=== PATIENT | male | born 1995 | race Caucasian/White ===

== ENCOUNTER 2017-01-14 11:29 | Emergency (ER) | payer OTHER ==
--- NOTE | 2017-01-14 12:05 | ED Physician Documentation ---
PD HPI ABD PAIN - Stated complaint Stated Complaint: ABD PX - Chief complaint Chief Complaint: Abd Pain - History obtained from History obtained from: Patient - History of Present Illness Timing - onset: How many weeks ago (1) Timing - duration: Weeks (1) Timing - details: Gradual onset Pain level max: 9 Pain level now: 6 Quality: Aching, Dull Location: Epigastric Radiation: Other (mid back) Improved by: Vomiting Worsened by: Eating Associated symptoms: Nausea, Vomiting (several times). No: Fever, Hematemesis, Diarrhea, Constipation, Melena, Hematochezia Similar symptoms before: Diagnosis ("ulcers") Recently seen: Not recently seen Review of Systems Ten Systems: 10 systems reviewed and negative Constitutional: denies: Fever, Chills Ears: denies: Ear pain Nose: denies: Rhinorrhea / runny nose, Congestion Throat: denies: Sore throat Cardiac: denies: Chest pain / pressure Respiratory: denies: Cough GI: denies: Abdominal Swelling, Hematemesis, Bloody / black stool Skin: denies: Rash Musculoskeletal: denies: Neck pain, Back pain Neurologic: denies: Headache PD PAST MEDICAL HISTORY - Past Medical History Past Medical History: Yes GI: Ulcers - Present Medications Home Medications: Ambulatory Orders Medication Instructions Recorded Confirmed Omeprazole [PriLOSEC] 20 mg PO DAILY #30 capsule 01/14/17 Ondansetron Odt [Zofran] 4 mg TL Q6H PRN #10 tablet 01/14/17 Sucralfate 1 gm PO ACHS #120 tablet 01/14/17 - Allergies Allergies/Adverse Reactions: Allergies Allergy/AdvReac Type Severity Reaction Status Date / Time No Known Drug Allergies Allergy Verified 01/14/17 11:37 - Social History Does the pt smoke?: Yes Smoking Status: Current every day smoker PD ED PE NORMAL - Vitals Vital signs reviewed: Yes - General General: Alert and oriented X 3, No acute distress - HEENT HEENT: Moist mucous membranes - Neck Neck: Supple, no meningeal sign - Cardiac Cardiac: RRR - Respiratory Respiratory: No respiratory distress, Clear bilaterally - Abdomen Abdomen: Soft, Other (Tender to palpation epigastric without peritoneal signs. Negative Huggins sign) - Back Back: No CVA TTP, No spinal TTP - Derm Derm: Warm and dry - Neuro Neuro: Alert and oriented X 3 - Psych Psych: Normal mood, Normal affect Results - Vitals Vitals: Vital Signs - 24 hr 01/14/17 01/14/17 11:33 13:07 Temperature 37 C 36.6 C Heart Rate 104 H 64 Respiratory 18 16 Rate Blood Pressure 166/67 H 124/69 O2 Saturation 99 99 Oxygen O2 Source Room air - Labs Labs: Laboratory Tests 01/14/17 01/14/17 01/14/17 12:22 12:22 12:22 WBC 6.4 RBC 5.11 Hgb 14.7 Hct 43.1 MCV 84.4 MCH 28.8 MCHC 34.2 RDW 13.2 Plt Count 233 MPV 8.4 Neut # 3.0 Lymph # 2.4 Pratt # 0.5 Eos # 0.4 Baso # 0.1 Absolute Nucleated RBC 0.00 Nucleated RBCs 0.0 Sodium 139 Potassium 4.2 Chloride 105 Carbon Dioxide 28 Anion Gap 6.0 BUN 15 Creatinine 0.9 Estimated GFR (MDRD) 107 Glucose 82 Calcium 9.6 Total Bilirubin 0.8 AST 24 ALT 38 Alkaline Phosphatase 72 Total Protein 7.0 Albumin 4.6 Globulin 2.4 Albumin/Globulin Ratio 1.9 Lipase 26 H. pylori IgG Antibody Negative PD MEDICAL DECISION MAKING - ED course Complexity details: reviewed results, re-evaluated patient, considered differential, d/w patient ED course: Patient presents to the emergency department with what appears to be gastritis versus peptic ulcer disease. Feels better after GI cocktail. Tolerating p.o. without difficulty here. Will place on a PPI for home and follow-up with his doctor for endoscopy. H. pylori test is negative. Other or laboratory testing is normal. Does not appear consistent with gallbladder disease at this time. Patient counseled regarding signs and symptoms for which I believe and urgent re -evaluation would be necessary. Patient with good understanding of and agreement to plan and is comfortable going home at this time This document was made in part using voice recognition software. While efforts are made to proofread this document, sound alike and grammatical errors may occur. Departure - Departure Disposition: Home, Self Care Clinical Impression: Abdominal pain Qualifiers: Abdominal location: epigastric Qualified Code(s): R10.13 - Epigastric pain Gastritis Qualifiers: Gastritis type: unspecified gastritis Chronicity: acute Gastritis bleeding: without bleeding Qualified Code(s): K29.00 - Acute gastritis without bleeding Condition: Good Instructions: ED PUD Vs Gastritis, ED Abdominal Pain Unkn Cause Follow-Up: your,doctor in 1 week [Other] Prescriptions: Omeprazole [PriLOSEC] 20 mg PO DAILY #30 capsule Sucralfate 1 gm PO ACHS #120 tablet Ondansetron Odt [Zofran] 4 mg TL Q6H PRN #10 tablet PRN Reason: Nausea / Vomiting Comments: Return if you worsen. This should improve over the next few days and improve even further over the next few weeks. You should follow-up with your doctor to be referred for an endoscopy to evaluate your stomach.
[2017-01-14] MEDS ORDERED: PANTOPRAZOLE 40 MG VIAL IVP STA (12:09)
[2017-01-14] MEDS ORDERED: ONDANSETRON 4 MG/2 ML VIAL IVP STA (12:09)
[2017-01-14] MEDS ORDERED: SODIUM CHLORIDE 0.9% 1,000 ML IV ONE (12:09)
[2017-01-14] MEDS ORDERED: PANTOPRAZOLE 40 MG VIAL ONE (12:15)
[2017-01-14] MEDS ORDERED: ONDANSETRON 4 MG/2 ML VIAL ONE (12:15)
[2017-01-14 12:25] LABS: BASOPHILS # (AUTO) 0.1 10^3/uL (0.0-0.1); BASOPHILS % (AUTO) 0.8 %; EOSINOPHILS # (AUTO) 0.4 10^3/uL (0.0-0.7); HCT - HEMATOCRIT 43.1 % (42.0-52.0); HGB - HEMOGLOBIN 14.7 g/dL (14.0-18.0); LYMPHOCYTES # (AUTO) 2.4 10^3/uL (1.5-3.5); LYMPHOCYTES % (AUTO) 37.7 %; MEAN CORPUSCULAR HEMOGLOBIN 28.8 pg (27.0-31.0); MEAN CORPUSCULAR HGB CONC 34.2 g/dL (32.0-36.0); MEAN CORPUSCULAR VOLUME 84.4 fL (80.0-94.0); MEAN PLATELET VOLUME 8.4 fL (7.4-11.4); MONOCYTES # (AUTO) 0.5 10^3/uL (0.0-1.0); MONOCYTES % (AUTO) 8.6 %; NEUTROPHILS % (AUTO) 46.9 %; RED BLOOD COUNT 5.11 10^6/uL (4.70-6.10); RED CELL DISTRIBUTION WIDTH 13.2 % (12.0-15.0); UNCORRECTED WHITE BLOOD COUNT 6.4 x10^3/uL; WHITE BLOOD COUNT 6.4 x10^3/uL (4.8-10.8)
[2017-01-14] MEDS ORDERED: SUCRALFATE 1 GM/10 ML UDC PO STA (12:33)
[2017-01-14] MEDS ORDERED: MAG HYDROX/AL HYDROX/SIMETH 30 ML UDC PO STA (12:33)
[2017-01-14] MEDS ORDERED: LIDOCAINE VISCOUS 2% 15 ML UDC MM STA (12:33)
[2017-01-14] MEDS ORDERED: PHENobarb/HYOSCY/ATROPINE/SCOP 5 ML SYRINGE PO STA (12:33)
[2017-01-14] MEDS ORDERED: MAG HYDROX/AL HYDROX/SIMETH 30 ML UDC ONE (12:38)
[2017-01-14] MEDS ORDERED: LIDOCAINE VISCOUS 2% 15 ML UDC MM ONE (12:38)
[2017-01-14] MEDS ORDERED: SUCRALFATE 1 GM/10 ML UDC ONE (12:38)
[2017-01-14] MEDS ORDERED: PHENobarb/HYOSCY/ATROPINE/SCOP 5 ML SYRINGE PO ONE (12:38)
[2017-01-14 12:39] LABS: ALBUMIN/GLOBULIN RATIO 1.9 (1.0-2.2); BILIRUBIN,TOTAL 0.8 mg/dL (0.2-1.0); CALCIUM 9.6 mg/dL (8.5-10.3); CREATININE 0.9 mg/dL (0.6-1.2); POTASSIUM 4.2 mmol/L (3.5-5.0)
[2017-01-14 12:42] LABS: H. PYLORI IGG ANTIBODY Negative (Negative); HPYLORI NEG QC Negative (Negative); HPYLORI POS QC POSITIVE (Positive)
[2017-01-14 13:07] VITALS: BP 124/69
== END 2017-01-14 13:51 | disposition home or self-care (01) ==
LOC: ED 11:29
DX: K29.00 Acute gastritis without bleeding (principal); Z87.11 Personal history of peptic ulcer disease; F17.200 Nicotine dependence, unspecified, uncomplicated
CPT/HCPCS: 36415; 80053; 83690; 85025; 87339; 96361; 96374; 96375; 99283; 99284; A9270

== ENCOUNTER 2017-02-01 10:20 | Outpatient (CLI) | payer OTHER ==
[2017-02-01] MEDS ORDERED: BARIUM SULFATE 176 GM BOTTLE PO ONE (13:31)
[2017-02-01] MEDS ORDERED: BARIUM SULFATE 135 ML BOTTLE PO ONE (13:31)
[2017-02-01] MEDS ORDERED: SIMETHICONE/SOD BICARB/CIT AC 1 EACH PACKET PO ONE (13:31)
== END 2017-02-01 10:21 | disposition home or self-care (01) ==
DX: R11.10 Vomiting, unspecified (principal)
CPT/HCPCS: 74249; A9270

== ENCOUNTER 2017-02-13 12:58 | Day surgery (SDC) | payer OTHER ==
[2017-02-13] MEDS ORDERED: LACTATED RINGERS 1,000 ML IV ONE (13:26)
[2017-02-13] MEDS ORDERED: fentaNYL 100 MCG/2 ML VIAL IVP ONE (16:25)
[2017-02-13] MEDS ORDERED: fentaNYL 250 MCG/5 ML VIAL IVP ONE (16:25)
[2017-02-13] MEDS ORDERED: MIDAZOLAM 2 MG/2 ML VIAL IVP ONE (16:25)
[2017-02-13] MEDS ORDERED: LIDO GARGLE 30 ML BOTTLE PO ONE (16:36)
[2017-02-13] MEDS ORDERED: LIDOCAINE-MPF 2% 5 ML VIAL IM ONE (17:00)
[2017-02-13] MEDS ORDERED: PROPOFOL 200 MG/20 ML VIAL IVP ONE (17:00)
== END 2017-02-13 12:59 | disposition home or self-care (01) ==
PROC: 0DB68ZX Excision of Stomach, Via Natural or Artificial Opening Endoscopic, Diagnostic (ICD-10-PCS; principal; 2017-02-13 14:30)
DX: K92.0 Hematemesis (principal); K21.9 Gastro-esophageal reflux disease without esophagitis; F17.210 Nicotine dependence, cigarettes, uncomplicated; K29.70 Gastritis, unspecified, without bleeding; K29.80 Duodenitis without bleeding
CPT/HCPCS: 43239; A9270; J3010; J7120